=== PATIENT | female | born 1990 | race Hispanic/Latino ===

== ENCOUNTER 2021-11-01 12:42 | Emergency (ER) | payer BC, OTHER ==
[~2021-11-01] VITALS: Ht 149.9 cm; Wt 68.1 kg
[2021-11-01] MEDS ORDERED: NS 1,000 ML IV ONE (14:10)
[2021-11-01] MEDS ORDERED: ONDANSETRON 4MG/2ML VIAL IV ONE (14:10)
[2021-11-01] MEDS ORDERED: ACETAMINOPHEN 500 MG TAB PO ONE (14:10)
[2021-11-01 15:15] LABS: BASO # 0.1 10^3/uL (0.0-0.2); BASO % 0.5 % (0.0-1.0); EOS # 0.4 10^3/uL (0.0-0.5); EOS % 3.5 % (0.0-3.0); HEMATOCRIT 40.9 % (36.0-47.0); HEMOGLOBIN 13.7 g/dl (12.0-15.5); LYMPH # 2.5 10^3/uL (1.5-5.0); LYMPH % 22.9 % (24.0-44.0); MEAN CORPUSCULAR HGB CONC 33.5 g/dl (32.0-36.5); MEAN CORPUSCULAR VOLUME 89.7 fl (80.0-96.0); MONO # 0.7 10^3/uL (0.0-0.8); MONO % 6.2 % (2.0-8.0); NEUTROPHILS # 7.2 10^3/uL (1.5-8.5); NEUTROPHILS % 66.1 % (36.0-66.0); PLATELET COUNT, AUTOMATED 310 10^3/uL (150-450); RED BLOOD COUNT 4.56 10^6/uL (4.00-5.40); WHITE BLOOD COUNT 10.9 10^3/uL (4.0-10.0)
[2021-11-01 15:19] LABS: APPEARANCE, URINE HAZY (CLEAR); BACTERIA, URINE AUTO NEGATIVE (NEGATIVE); BILIRUBIN, URINE AUTO NEGATIVE (NEGATIVE); BLOOD, URINE BLOOD 1+ (NEGATIVE); COLOR, URINE YELLOW (YELLOW); GLUCOSE, URINE (UA) AUTO NEGATIVE (NEGATIVE); KETONE, URINE AUTO NEGATIVE (NEGATIVE); LEUKOCYTE ESTERASE, URINE AUTO NEGATIVE (NEGATIVE); MUCUS, URINE SMALL (NEGATIVE); NITRITE, URINE AUTO NEGATIVE (NEGATIVE); PROTEIN, URINE AUTO NEGATIVE (NEGATIVE); RBC, URINE AUTO 0 /HPF (0-3); SPECIFIC GRAVITY URINE AUTO 1.008 (1.002-1.035); SQUAMOUS EPITHELIAL CELL UR AU 6 /HPF (0-6); UROBILINOGEN, URINE AUTO 0.2 mg/dL (0.0-2.0); WBC, URINE AUTO 1 /HPF (0-3)
[2021-11-01 15:50] LABS: ALBUMIN 3.5 GM/DL (3.2-5.2); ALT/SGPT 22 U/L (12-78); BILIRUBIN,DIRECT < 0.1 MG/DL (0.0-0.2); BILIRUBIN,TOTAL 0.2 MG/DL (0.2-1.0); BLOOD UREA NITROGEN 6 MG/DL (7-18); CALCIUM LEVEL 8.7 MG/DL (8.5-10.1); CARBON DIOXIDE LEVEL 24 MEQ/L (21-32); CHLORIDE LEVEL 109 MEQ/L (98-107); CREATININE FOR GFR 0.54 MG/DL (0.55-1.30); GLOMERULAR FILTRATION RATE > 60.0 (>60); GLUCOSE, FASTING 72 MG/DL (70-100); POTASSIUM SERUM 4.1 MEQ/L (3.5-5.1); SODIUM LEVEL 140 MEQ/L (136-145); TOTAL PROTEIN 7.3 GM/DL (6.4-8.2)
[2021-11-01 16:58] VITALS: BP 112/82
== END 2021-11-01 16:59 | disposition home or self-care (01) ==
LOC: M ED 12:42
DX: O26.891 Other specified pregnancy related conditions, first trimester (principal); R10.2 Pelvic and perineal pain; M54.50 Low back pain, unspecified; Z3A.12 12 weeks gestation of pregnancy
CPT/HCPCS: 76801; 80048; 80076; 81001; 85025; 86850; 86900; 86901; 93976; 96374; 99283; J2405

== ENCOUNTER → 2021-11-27 | Outpatient (CLI) | payer OTHER | LOC: M PLALAB 09:34 | PROVIDERS: ATTEND Obstetrics & Gynecology | DX: Z34.82 Encounter for supervision of other normal pregnancy, second trimester (principal); Z3A.00 Weeks of gestation of pregnancy not specified ==

== ENCOUNTER → 2024-07-03 | Outpatient (CLI) | payer OTHER ==
[~2024-07-03] MED LIST: PRENTAB9 PO
[2024-07-03 13:36] LABS: HEMATOCRIT 39.6 % (36.0-47.0); HEMOGLOBIN 12.9 g/dl (12.0-15.5); MEAN CORPUSCULAR HEMOGLOBIN 29.6 pg (27.0-33.0); MEAN CORPUSCULAR HGB CONC 32.6 g/dl (32.0-36.5); MEAN CORPUSCULAR VOLUME 90.8 fl (80.0-96.0); PLATELET COUNT, AUTOMATED 279 10^3/uL (150-450); RED BLOOD COUNT 4.36 10^6/uL (4.00-5.40); WHITE BLOOD COUNT 9.4 10^3/uL (4.0-10.0)
[2024-07-03 15:23] LABS: GC DNA AMPLIFICATION NEGATIVE (NEGATIVE)
== END ==
LOC: M PLALAB 09:41
PROVIDERS: ATTEND Obstetrics & Gynecology
DX: O09.522 Supervision of elderly multigravida, second trimester (principal)

== ENCOUNTER → 2024-09-19 | Outpatient (REF) | payer OTHER | LOC: M SFHCWAGY 13:20 | PROVIDERS: ATTEND Advanced Practice Midwife | DX: Z34.83 Encounter for supervision of other normal pregnancy, third trimester (principal) ==

== ENCOUNTER 2024-09-27 07:45 | Outpatient (CLI) | payer OTHER ==
[~2024-09-27] VITALS: Ht 149.9 cm; Wt 76.4 kg
[2024-09-27] MEDS ORDERED: FAMO10TA50 PO (08:08)
[2024-09-27 08:09] VITALS: BP 110/73
[2024-09-27 10:18] VITALS: BP 99/59
== END 2024-09-27 10:53 | disposition home or self-care (01) ==
LOC: M LDO 07:45
PROVIDERS: ATTEND Obstetrics & Gynecology
DX: O47.1 False labor at or after 37 completed weeks of gestation (principal); O09.523 Supervision of elderly multigravida, third trimester; Z3A.37 37 weeks gestation of pregnancy
CPT/HCPCS: 59025; G0463

== ENCOUNTER 2024-09-27 18:08 | Inpatient (IN) | payer OTHER ==
[~2024-09-27] VITALS: Ht 149.9 cm; Wt 76.4 kg
[~2024-09-27 18:08] MED LIST changes: +FAMO10TA50 PO
[2024-09-27] MEDS ORDERED: OXYTOCIN INJ 10UNITS/ML 1ML VIAL IV STA (18:17)
[2024-09-27] MEDS ORDERED: OXYTOCIN 30UNITS IN 0.9% NaCl 500ML IV BAG As Ordered ONE (18:17)
[2024-09-27] MEDS ORDERED: HOME MED LIST COMPLETE! XX SCH (18:25)
[2024-09-27 18:35] LABS: HEMOGLOBIN 14.4 g/dl (12.0-15.5); MEAN CORPUSCULAR HEMOGLOBIN 29.7 pg (27.0-33.0); MEAN CORPUSCULAR HGB CONC 34.3 g/dl (32.0-36.5); MEAN CORPUSCULAR VOLUME 86.6 fl (80.0-96.0); PLATELET COUNT, AUTOMATED 250 10^3/uL (150-450); RED BLOOD COUNT 4.85 10^6/uL (4.00-5.40); WHITE BLOOD COUNT 11.7 10^3/uL (4.0-10.0)
[2024-09-27] MEDS: OXYTOCIN DRIP 30 UNITS in IV 1 EA IV ONE (18:44)
[2024-09-27 18:49] VITALS: BP 134/69
[2024-09-27 18:54] LABS: CORD GAS ABE A -2.8; CORD GAS ABE V -0.8; CORD GAS HCO3 A 21.8 MMOL/L; CORD GAS HCO3 V 21.2 MMOL/L; CORD GAS O2 SAT A 50.3 %; CORD GAS O2 SAT V 72.6 %; CORD GAS PCO2 A 37.8 mmHg; CORD GAS PCO2 V 29.2 mmHg; CORD GAS PH A 7.379 UNITS; CORD GAS PH V 7.479 UNITS; CORD GAS PO2 A 20.3 mmHg; CORD GAS PO2 V 26.8 mmHg; CORD GAS SBC A 20.9 MMOL/L; CORD GAS SBC V 23.1 MMOL/L; CORD GAS TCO2 V 22.1 MMOL/L
[2024-09-27 19:05] VITALS: BP 122/61
[2024-09-27 19:20] VITALS: BP 127/66
[2024-09-27] MEDS ORDERED: LR 1,000 ML IV SCH (19:30)
[2024-09-27 19:35] VITALS: BP 107/53
[2024-09-27] MEDS ORDERED: DIBUCAINE 1% OINTMENT 30GM TOP PRN (19:35)
[2024-09-27] MEDS ORDERED: CALCIUM CARBONATE 500 MG CHEW U/D PO PRN (19:35)
[2024-09-27] MEDS: OXYTOCIN DRIP 30 UNITS in IV 1 EA IV SCH (19:35)
[2024-09-27] MEDS ORDERED: METHYLERGONOVINE MALEATE 0.2 MG TAB PO PRN (19:35)
[2024-09-27] MEDS ORDERED: RHOGAM 300MCG (1500IU) INJ IM SCH (19:35)
[2024-09-27] MEDS ORDERED: IBUPROFEN 600MG TAB PO PRN (19:35)
[2024-09-27] MEDS ORDERED: MOM 30ML SUSPENSION UDC PO PRN (19:35)
[2024-09-27] MEDS ORDERED: ACETAMINOPHEN 325 MG TAB PO PRN (19:35)
[2024-09-27] MEDS ORDERED: DOCUSATE SODIUM 100MG CAPSULE PO PRN (19:35)
[2024-09-27 19:36] LABS: HEPATITIS C VIRUS ABY INDEX < 0.02 INDEX (<0.8)
[2024-09-27] MEDS: IBUPROFEN 800 MG TAB PO PRN (19:41)
[2024-09-27 19:49] VITALS: BP 116/61
[2024-09-27 20:18] VITALS: BP 110/62; O2SAT 98
[2024-09-28 06:15] VITALS: BP 99/57; O2SAT 97
[2024-09-28] MEDS: PRENATAL VITAMINS CHEWABLE TABLET PO SCH (11:27)
[2024-09-28 18:00] VITALS: BP 106/65; O2SAT 98
[2024-09-29 06:00] VITALS: BP 116/75; O2SAT 96
[2024-09-29] MEDS: ACETAMINOPHEN 500 MG TAB PO PRN (08:10)
[2024-09-29] MEDS ORDERED: IBUP-1022 PO (08:24)
[2024-09-29] MEDS ORDERED: ACET-683 PO (08:24)
[2024-09-29] MEDS: MEASLES,MUMPS,RUBELLA VACCINE INJ (MMR-II) SC.IMMUN ONE (09:00)
[2024-09-29] MEDS: FLUZONE VACCINE TRIVALENT PF(2024-25) 0.5ML SYRINGE IM.IMMUN ONE (13:00)
== END 2024-09-29 13:21 | disposition home or self-care (01) | DRG 560 ==
LOC: M LDO 18:08 → M LDI 18:14 → M OBS 20:11
PROVIDERS: ADMIT Obstetrics & Gynecology; ATTEND Obstetrics & Gynecology
PROC: 10E0XZZ Delivery of Products of Conception, External Approach (ICD-10-PCS; principal; 2024-09-27)
DX: O69.1XX0 Labor and delivery complicated by cord around neck, with compression, not applicable or unspecified (principal); Z37.0 Single live birth; Z3A.37 37 weeks gestation of pregnancy

== ENCOUNTER 2024-11-03 19:09 | Emergency (ER) | payer MEDICAID, OTHER ==
[~2024-11-03 19:09] MED LIST changes: +ACET-683 PO; +IBUP-1022 PO
[2024-11-03 20:12] LABS: BASO # 0.1 10^3/uL (0.0-0.2); BASO % 0.6 % (0.0-1.0); EOS # 0.6 10^3/uL (0.0-0.5); EOS % 5.2 % (0.0-3.0); HEMATOCRIT 41.6 % (36.0-47.0); HEMOGLOBIN 13.9 g/dl (12.0-15.5); LYMPH # 3.5 10^3/uL (1.5-5.0); MEAN CORPUSCULAR HEMOGLOBIN 29.1 pg (27.0-33.0); MEAN CORPUSCULAR HGB CONC 33.4 g/dl (32.0-36.5); MONO # 0.7 10^3/uL (0.0-0.8); NEUTROPHILS # 5.6 10^3/uL (1.5-8.5); NEUTROPHILS % 53.3 % (36.0-66.0); PLATELET COUNT, AUTOMATED 287 10^3/uL (150-450); RED BLOOD COUNT 4.78 10^6/uL (4.00-5.40); WHITE BLOOD COUNT 10.6 10^3/uL (4.0-10.0)
[2024-11-03 20:16] LABS: KETONE, URINE AUTO RFX NEGATIVE (NEGATIVE); LEUKOCYTE ESTERASE UR AUTO RFX 1+ (NEGATIVE)
[2024-11-03 20:30] LABS: LIPASE 35 U/L (12-53)
[2024-11-03 20:32] LABS: ALBUMIN 3.8 G/DL (3.2-5.2); ALKALINE PHOSPHATASE 133 U/L (35-104); ALT/SGPT 48 U/L (7.0-40); AST/SGOT 17 U/L (<34); BILIRUBIN,DIRECT < 0.1 MG/DL (<0.4); BILIRUBIN,TOTAL 0.4 MG/DL (0.3-1.2); BLOOD UREA NITROGEN 20 MG/DL (9-23); CALCIUM LEVEL 9.3 MG/DL (8.5-10.1); CARBON DIOXIDE LEVEL 25 MMOL/L (20-31); CHLORIDE LEVEL 106 MMOL/L (98-107); CREATININE FOR GFR 0.71 MG/DL (0.55-1.30); GLOMERULAR FILTRATION RATE > 60.0 (>60); GLUCOSE, FASTING 95 MG/DL (60-100); POTASSIUM SERUM 4.2 MMOL/L (3.5-5.1); SODIUM LEVEL 142 MMOL/L (136-145); TOTAL PROTEIN 7.2 G/DL (5.7-8.2)
[2024-11-03] MEDS ORDERED: ISOVUE-370 76% 100ML VIAL As Ordered ONE (22:56)
[2024-11-03] MEDS: KETOROLAC 30 MG/ML 1ML VIAL IV ONE (23:00)
[2024-11-04 01:13] VITALS: BP 128/88; TEMP 98.8; O2SAT 98
== END 2024-11-04 01:17 | disposition home or self-care (01) ==
LOC: M ED 19:09
DX: K42.9 Umbilical hernia without obstruction or gangrene (principal); K76.0 Fatty (change of) liver, not elsewhere classified; K57.30 Diverticulosis of large intestine without perforation or abscess without bleeding; Z79.899 Other long term (current) drug therapy
CPT/HCPCS: 74177; 80048; 80076; 81001; 83605; 83690; 85025; 87086; 96374; 99291; J1885; Q9967

== ENCOUNTER → 2024-12-24 | Outpatient (REF) | payer OTHER ==
[2024-12-24 14:04] LABS: HEMATOCRIT 41.6 % (36.0-47.0); HEMOGLOBIN 13.7 g/dl (12.0-15.5); MEAN CORPUSCULAR HEMOGLOBIN 29.5 pg (27.0-33.0); MEAN CORPUSCULAR HGB CONC 32.9 g/dl (32.0-36.5); MEAN CORPUSCULAR VOLUME 89.7 fl (80.0-96.0); PLATELET COUNT, AUTOMATED 332 10^3/uL (150-450); RED BLOOD COUNT 4.64 10^6/uL (4.00-5.40)
[2024-12-24 14:38] LABS: ALBUMIN 3.7 G/DL (3.2-5.2); ALKALINE PHOSPHATASE 100 U/L (35-104); ALT/SGPT 49 U/L (7.0-40); AST/SGOT 19 U/L (<34); BILIRUBIN,TOTAL 0.6 MG/DL (0.3-1.2); BLOOD UREA NITROGEN 17 MG/DL (9-23); CALCIUM LEVEL 9.2 MG/DL (8.5-10.1); CARBON DIOXIDE LEVEL 25 MMOL/L (20-31); CHLORIDE LEVEL 106 MMOL/L (98-107); CHOLESTEROL LEVEL 208 MG/DL (<200); CHOLESTEROL RISK RATIO 2.93 (<5); CREATININE FOR GFR 0.58 MG/DL (0.55-1.30); GLOMERULAR FILTRATION RATE > 60.0 (>60); GLUCOSE, FASTING 82 MG/DL (60-100); HDL CHOLESTEROL 70.9 MG/DL (>40); LDL CHOLESTEROL 102.7 MG/DL (<100); NON-HDL-C 137.1 MG/DL; POTASSIUM SERUM 4.4 MMOL/L (3.5-5.1); SODIUM LEVEL 141 MMOL/L (136-145); TOTAL PROTEIN 7.3 G/DL (5.7-8.2); TRIGLYCERIDES LEVEL 172 MG/DL (<150)
[2024-12-24 14:42] LABS: THYROID STIMULATING HORMONE 2.088 uIU/ML (0.55-4.78)
== END ==
LOC: M LAB REF 12:01
PROVIDERS: ATTEND Student in an Organized Health Care Education/Training Program
DX: Z00.01 Encounter for general adult medical examination with abnormal findings (principal)

== ENCOUNTER 2025-02-01 12:02 | Day surgery (SDC) | payer OTHER ==
[~2025-02-01] VITALS: Ht 149.9 cm; Wt 74.7 kg
[~2025-02-01 12:02] MED LIST changes: +CelecoXIB 400 MG CAP PO ONE; +DOCU100C16 PO; +LIDOCAINE 2% INJ 100 MG/5 ML SYRINGE As Ordered ONE; +MIDAZOLAM INJ 2MG/2ML VIAL As Ordered ONE; +ROCURONIUM BROMIDE 50MG/5ML VIAL As Ordered ONE; +THERTAB52 PO; +fentaNYL 100 MCG/2 ML INJECTION As Ordered ONE; +propofoL 200 MG/20 ML VIAL As Ordered ONE
[2025-02-01] MEDS ORDERED: LR 1,000 ML IV SCH ×2 (12:20→16:20)
[2025-02-01] MEDS: ceFAZolin SOD 2 GM IV ONCE IV ONE (13:54)
[2025-02-01] MEDS ORDERED: ACETAMINOPHEN 1000MG/100ML IV BAG As Ordered ONE (14:13)
[2025-02-01] MEDS ORDERED: dexmedeTOMIDine (4MCG/ML)200MCG/50ML BTL (PRECEDEX) As Ordered ONE (14:52)
[2025-02-01] MEDS ORDERED: KETOROLAC 30 MG/ML 1ML VIAL As Ordered ONE (15:00)
[2025-02-01] MEDS ORDERED: ONDANSETRON 4MG 2ML VIAL As Ordered ONE (15:00)
[2025-02-01] MEDS: LIDOCAINE 1% SDV 30ML VIAL As Ordered ONE (15:00)
[2025-02-01] MEDS: BUPivacaine LIPOSOME/PF 266MG 20ML VIAL (13.3MG/ML)(EXPAREL) As Ordered ONE (15:00)
[2025-02-01] MEDS ORDERED: SUGAMMADEX SODIUM 500 MG/5 ML VIAL (BRIDION) As Ordered ONE (15:00)
[2025-02-01] MEDS ORDERED: oxyCODONE 5MG TAB PO PRN (16:20)
[2025-02-01] MEDS ORDERED: fentaNYL 100 MCG/2 ML INJECTION IV PRN (16:20)
[2025-02-01] MEDS ORDERED: ONDANSETRON 4MG 2ML VIAL IV PRN (16:20)
[2025-02-01] MEDS: HYDROMORPHONE HCL 0.5 MG/ 0.5 ML SYRINGE IV PRN (16:36)
[2025-02-01 18:57] VITALS: BP 118/70; TEMP 97.7; O2SAT 96
== END 2025-02-01 19:10 | disposition home or self-care (01) ==
LOC: M SDC 12:02
PROVIDERS: ATTEND Surgery
DX: K42.0 Umbilical hernia with obstruction, without gangrene (principal); M62.08 Separation of muscle (nontraumatic), other site; Z30.2 Encounter for sterilization
CPT/HCPCS: 49594; 58661; 81025; 88302; C1781; J0131; J0665; J0666; J0690; J1100; J1171; J1885; J2250; J2405; J3010; S2900

== ENCOUNTER → 2025-05-27 | Outpatient (CLI) | payer OTHER ==
[~2025-05-27] MED LIST changes: -CelecoXIB 400 MG CAP PO ONE; -LIDOCAINE 2% INJ 100 MG/5 ML SYRINGE As Ordered ONE; -MIDAZOLAM INJ 2MG/2ML VIAL As Ordered ONE; -ROCURONIUM BROMIDE 50MG/5ML VIAL As Ordered ONE; -fentaNYL 100 MCG/2 ML INJECTION As Ordered ONE; -propofoL 200 MG/20 ML VIAL As Ordered ONE
== END ==
LOC: M RAD 08:50
PROVIDERS: ATTEND Student in an Organized Health Care Education/Training Program
DX: K76.0 Fatty (change of) liver, not elsewhere classified (principal); R10.9 Unspecified abdominal pain